=== PATIENT | male | born 1980 | race Two or more races ===

== ENCOUNTER 2017-03-24 11:19 | Emergency (ER) | payer MEDICAID ==
[~2017-03-24] VITALS: Ht 177.8 cm; Wt 77.1 kg
[2017-03-24 12:21] VITALS: BP 134/86
== END 2017-03-24 12:35 | disposition home or self-care (01) ==
LOC: ER 11:19
DX: L01.00 Impetigo, unspecified (principal)

== ENCOUNTER 2017-06-14 11:32 | Emergency (ER) | payer MEDICAID ==
[~2017-06-14] VITALS: Ht 177.8 cm; Wt 77.1 kg
[2017-06-14 12:30] VITALS: BP 119/69
== END 2017-06-14 14:49 | disposition left against medical advice (07) ==
LOC: ER 11:32
DX: R21 Rash and other nonspecific skin eruption (principal); Z53.21 Procedure and treatment not carried out due to patient leaving prior to being seen by health care provider

== ENCOUNTER 2017-06-27 12:23 | Emergency (ER) | payer MEDICAID ==
[~2017-06-27] VITALS: Ht 177.8 cm; Wt 69.9 kg
[2017-06-27 12:29] VITALS: BP 120/68
== END 2017-06-27 14:38 | disposition home or self-care (01) ==
LOC: ER 12:23
DX: S50.862A Insect bite (nonvenomous) of left forearm, initial encounter (principal); S50.861A Insect bite (nonvenomous) of right forearm, initial encounter; S60.562A Insect bite (nonvenomous) of left hand, initial encounter; S60.561A Insect bite (nonvenomous) of right hand, initial encounter; W57.XXXA Bitten or stung by nonvenomous insect and other nonvenomous arthropods, initial encounter; Y93.89 Activity, other specified; Y92.89 Other specified places as the place of occurrence of the external cause; Y99.8 Other external cause status